=== PATIENT | female | born 1995 | race Caucasian/White ===

== ENCOUNTER 2018-03-23 13:27 | Emergency (ER) | payer BC, MEDICAID ==
[~2018-03-23] VITALS: Ht 152.4 cm; Wt 70.8 kg
[2018-03-23] MEDS ORDERED: ACETAMINOPHEN 500MG TABLET PO ONE (14:30)
[2018-03-23 16:03] VITALS: BP 90/49
== END 2018-03-23 16:15 | disposition home or self-care (01) ==
LOC: ER 14:05
DX: S00.03XA Contusion of scalp, initial encounter (principal); S00.83XA Contusion of other part of head, initial encounter; Y04.0XXA Assault by unarmed brawl or fight, initial encounter; W22.01XA Walked into wall, initial encounter; Y93.89 Activity, other specified; Y92.018 Other place in single-family (private) house as the place of occurrence of the external cause
CPT/HCPCS: 70150; 81025; 99284

== ENCOUNTER 2022-03-06 05:29 | Emergency (ER) | payer MEDICAID ==
[~2022-03-06] VITALS: Ht 152.4 cm; Wt 88.0 kg
[2022-03-06 05:34] VITALS: BP 99/63
[2022-03-06] MEDS ORDERED: TETANUS, DIPHTHERIA, PERTUSSIS VAC/PF 0.5ML (>10YR OLD) IM ONE (07:15)
== END 2022-03-06 08:07 | disposition home or self-care (01) ==
LOC: ER 05:39
DX: S01.81XA Laceration without foreign body of other part of head, initial encounter (principal); W26.8XXA Contact with other sharp object(s), not elsewhere classified, initial encounter; Y93.89 Activity, other specified; Y92.018 Other place in single-family (private) house as the place of occurrence of the external cause
CPT/HCPCS: 12011; 90471; 90715; 99283; A4217; Z7610